=== PATIENT | female | born 1975 | race Caucasian/White ===

== ENCOUNTER 2022-10-09 21:58 | Emergency (ER) | payer MEDICAID, MEDICARE, SELFPAY ==
[2022-10-09 23:04] VITALS: BP 00/00; PULSE 0; RESP 0; TEMP -17.7; TEMP 0
== END 2022-10-09 23:13 | disposition left against medical advice (07) ==
LOC: ER 23:13
PROVIDERS: Emergency Provider Emergency Medicine; PCP Pediatrics
DX: Z53.21 Procedure and treatment not carried out due to patient leaving prior to being seen by health care provider (principal)
CPT/HCPCS: 99211